=== PATIENT | female | born 1965 | race Caucasian/White ===

== ENCOUNTER 2024-08-31 20:41 | Emergency (ER) | payer OTHER ==
[~2024-08-31] VITALS: Ht 170.1 cm; Wt 90.7 kg
[2024-08-31] MEDS ORDERED: NEURONTIN100 MG PO (20:53)
[2024-08-31] MEDS ORDERED: TRAMADOL HCL50 MG PO (20:53)
[2024-08-31] MEDS ORDERED: LEVOTHYROXINE50 MC1 PO (20:53)
[2024-08-31] MEDS ORDERED: VITAMIN D3100 GM MC (20:54)
[2024-08-31] MEDS ORDERED: EFFEXOR XR75 M1 PO (20:54)
[2024-08-31] MEDS ORDERED: SODIUM CHLORIDE 0.9% 1,000 ML IV ONE (21:05)
[2024-08-31] MEDS ORDERED: Ondansetron Hydrochloride 4 MG/2 ML VIAL IV ONE (21:05)
[2024-08-31 21:24] LABS: HEMATOCRIT 41.2 % (37.0-47.0); MANUAL DIFF REFLEX YES; MEAN CELL VOLUME 92.8 fl (81.0-99.0); MEAN CORPUSCULAR HGB 30.6 pg (27.0-31.0); MEAN PLATELET VOLUME 10.3 fl (9.6-12.3); PLATELET COUNT AUTOMATED 235 10*3/uL (130-400); RED BLOOD COUNT 4.44 10*6/uL (4.10-5.10); RED CELL DISTRI WIDTH 11.7 % (0-14.5); WHITE BLOOD COUNT 13.8 10*3/uL (4.8-10.8)
[2024-08-31] MEDS ORDERED: ACETAMINOPHEN 325 MG TAB PO ONE (21:35)
[2024-08-31 21:42] LABS: BUN 12 mg/dl (9-23); CHLORIDE 103 mmol/L (98-107); POTASSIUM 4.1 mmol/L (3.4-5.1)
[2024-08-31 21:43] LABS: PLATELET SUFFICIENCY NORMAL (NORMAL); TOTAL CELLS COUNTED 100 #CELLS
[2024-08-31 21:46] LABS: ROULEAUX SLIGHT
[2024-08-31] MEDS ORDERED: diphenhydrAMINE hydrochloride 50 MG/ML VIAL IV ONE (22:15)
[2024-08-31] MEDS ORDERED: Metoclopramide Hydrochloride 10 MG/2 ML VIAL IV ONE (22:15)
[2024-08-31 22:17] LABS: BILIRUBIN Negative (Negative); BLOOD 2+ (Negative); CLARITY Clear (Clear); COLOR Yellow (Yellow); GLUCOSE Negative (Negative); KETONE 2+ (Negative); LEUKO ESTERASE Negative (Negative); NITRITE Negative (Negative); PH 5.5 (4.5-8.0); SPECIFIC GRAVITY >= 1.030 (1.001-1.030)
[2024-08-31 22:55] LABS: EPITHELIAL CELLS 16-20; WBC 0-2 wbc/hpf (0-5); YEAST 1+
[2024-08-31] MEDS ORDERED: Ondansetron4 MG PO (23:01)
[2024-08-31] MEDS ORDERED: AVPAK AZITHROM250 M1 PO (23:01)
[2024-08-31] MEDS ORDERED: AZITHROMYCIN 250 MG TAB PO ONE (23:05)
== END 2024-08-31 23:14 | disposition home or self-care (01) ==
LOC: ED 20:41
PROVIDERS: Physician Assistant Medical
DX: J18.9 Pneumonia, unspecified organism (principal); Z20.822 Contact with and (suspected) exposure to COVID-19; E78.5 Hyperlipidemia, unspecified; F41.9 Anxiety disorder, unspecified; F32.A Depression, unspecified; E03.9 Hypothyroidism, unspecified; Z88.1 Allergy status to other antibiotic agents; Z88.5 Allergy status to narcotic agent; Z88.8 Allergy status to other drugs, medicaments and biological substances; Z90.710 Acquired absence of both cervix and uterus; Z98.890 Other specified postprocedural states; Z79.899 Other long term (current) drug therapy